=== PATIENT | female | born 1940 | race Caucasian/White ===

== ENCOUNTER → 2023-07-14 09:45 | Outpatient (REF) | payer MEDICARE, OTHER, SELFPAY ==
[2023-07-14 11:52] LABS: % Basophils 0.9 % (0-2); % Eosinophils 3.8 % (0-6); % Immature Granulocytes 0.3 % (0-0.5); % Lymphocytes 24.7 % (20.5-51.1); % Monocytes 11.1 % (1.7-9.3); % Neutrophils 59.2 % (42.2-75.2); Absolute Basophils 0.1 10^3/uL (0-0.2); Absolute Eosinophils 0.3 10^3/uL (0-0.7); Absolute Lymphocytes 1.8 10^3/uL (1.2-3.4); Absolute Monocytes 0.8 10^3/uL (0.1-0.6); Absolute Neutrophils 4.4 10^3/uL (1.4-6.5); Hematocrit 42.3 % (37.0-47.0); Hemoglobin 13.6 g/dL (12.0-16.0); Mean Corp Hgb Conc. 32.2 g/dL (33.0-37.0); Mean Corpuscular Hgb 31.3 pg (27.0-31.0); Mean Corpuscular Volume 97.5 fL (81.0-99.0); Mean Platelet Volume 11.8 fL (7.4-10.4); Nucleated Red Blood Cells % 0 %; Platelet Count 200 10^3/uL (130-400); Red Blood Cell Count 4.34 10^6/uL (4.20-5.40); Red Cell Dist. Width 13.2 % (11.5-14.5); White Blood Cell Count 7.5 10^3/uL (4.8-10.8)
[2023-07-14 14:24] LABS: ALT (SGPT) 15 U/L (0-35); AST (SGOT) 28 U/L (14-36); Albumin 4.2 g/dl (3.5-5.0); Alkaline Phosphatase 121 U/L (38-126); Blood Urea Nitrogen 43 mg/dl (7-17); Direct Bilirubin 0.4 mg/dl (0.0-0.4); Glucose 74 mg/dl (70-99); HDL Cholesterol 68 mg/dl; Iron 91 ug/dl (37-170); LDL Cholesterol, Calculated 139 mg/dl; Total Bilirubin 0.6 mg/dl (0.2-1.3); Total Cholesterol 232 mg/dl (50-199); Total Protein 6.4 g/dl (6.3-8.2); Triglyceride 128 mg/dl (10-149); Very Low Density Lipoprotein 25 mg/dl (0-30)
[2023-07-14 14:35] LABS: Glycohemoglobin (HgbA1c) 5.8 % (4.0-5.6)
[2023-07-14 14:46] LABS: Ferritin 83.5 ng/ml (11.1-264.0)
[2023-07-14 17:02] LABS: IgG 508 mg/dl (700-1600)
== END ==
LOC: REG 09:45
PROVIDERS: ATTENDING PHYSICIAN Internal Medicine Hematology & Oncology; FAMILY PHYSICIAN Internal Medicine
DX: D86.85 Sarcoid myocarditis (principal); D80.3 Selective deficiency of immunoglobulin G [IgG] subclasses; D50.9 Iron deficiency anemia, unspecified; E11.49 Type 2 diabetes mellitus with other diabetic neurological complication; N18.30 Chronic kidney disease, stage 3 unspecified; E78.5 Hyperlipidemia, unspecified; E03.9 Hypothyroidism, unspecified
CPT/HCPCS: 36415; 80061; 80076; 82565; 82728; 82784; 82947; 83036; 83540; 84520; 85025

== ENCOUNTER → 2023-09-09 10:36 | Outpatient (REF) | payer MEDICARE, OTHER, SELFPAY | LOC: RAD 10:36 | PROVIDERS: ATTENDING PHYSICIAN Internal Medicine | DX: M77.50 Other enthesopathy of unspecified foot and ankle (principal) | CPT/HCPCS: 73630 ==

== ENCOUNTER → 2023-09-26 17:21 | Outpatient (REF) | payer MEDICARE, OTHER, SELFPAY | LOC: RAD 17:21 | PROVIDERS: ATTENDING PHYSICIAN Internal Medicine | DX: R60.0 Localized edema (principal); M25.572 Pain in left ankle and joints of left foot | CPT/HCPCS: 73610; 93971 ==

== ENCOUNTER → 2023-10-16 10:29 | Outpatient (REF) | payer MEDICARE, OTHER, SELFPAY ==
[2023-10-16 11:15] LABS: % Basophils 0.8 % (0-2); % Eosinophils 2.2 % (0-6); % Immature Granulocytes 0.4 % (0-0.5); % Monocytes 12.9 % (1.7-9.3); % Neutrophils 64.7 % (42.2-75.2); Absolute Basophils 0.1 10^3/uL (0-0.2); Absolute Eosinophils 0.2 10^3/uL (0-0.7); Absolute Lymphocytes 1.5 10^3/uL (1.2-3.4); Hematocrit 40.3 % (37.0-47.0); Hemoglobin 13.4 g/dL (12.0-16.0); Mean Corp Hgb Conc. 33.3 g/dL (33.0-37.0); Mean Corpuscular Hgb 31.2 pg (27.0-31.0); Mean Corpuscular Volume 93.9 fL (81.0-99.0); Mean Platelet Volume 12.4 fL (7.4-10.4); Nucleated Red Blood Cells % 0 %; Platelet Count 157 10^3/uL (130-400); Red Blood Cell Count 4.29 10^6/uL (4.20-5.40); Red Cell Dist. Width 13.4 % (11.5-14.5); White Blood Cell Count 7.7 10^3/uL (4.8-10.8)
[2023-10-16 12:16] LABS: Iron 76 ug/dl (37-170)
[2023-10-16 12:28] LABS: IgG 440 mg/dl (700-1600)
[2023-10-16 12:45] LABS: Ferritin 37.6 ng/ml (11.1-264.0)
== END ==
LOC: REG 10:29
PROVIDERS: ATTENDING PHYSICIAN Internal Medicine Hematology & Oncology; FAMILY PHYSICIAN Internal Medicine
DX: D86.85 Sarcoid myocarditis (principal); D80.3 Selective deficiency of immunoglobulin G [IgG] subclasses; D50.9 Iron deficiency anemia, unspecified; D86.9 Sarcoidosis, unspecified
CPT/HCPCS: 36415; 82728; 82784; 83540; 85025

== ENCOUNTER → 2024-01-07 10:09 | Outpatient (REF) | payer MEDICARE, OTHER, SELFPAY ==
[2024-01-07 11:20] LABS: % Basophils 0.8 % (0-2); % Immature Granulocytes 0.5 % (0-0.5); % Lymphocytes 19.5 % (20.5-51.1); % Monocytes 12.5 % (1.7-9.3); % Neutrophils 63.7 % (42.2-75.2); Absolute Basophils 0.1 10^3/uL (0-0.2); Absolute Eosinophils 0.3 10^3/uL (0-0.7); Absolute Lymphocytes 1.7 10^3/uL (1.2-3.4); Absolute Monocytes 1.1 10^3/uL (0.1-0.6); Absolute Neutrophils 5.4 10^3/uL (1.4-6.5); Hematocrit 41.9 % (37.0-47.0); Hemoglobin 13.9 g/dL (12.0-16.0); Mean Corp Hgb Conc. 33.2 g/dL (33.0-37.0); Mean Corpuscular Hgb 30.1 pg (27.0-31.0); Mean Corpuscular Volume 90.7 fL (81.0-99.0); Mean Platelet Volume 11.8 fL (7.4-10.4); Nucleated Red Blood Cells % 0 %; Platelet Count 204 10^3/uL (130-400); Red Blood Cell Count 4.62 10^6/uL (4.20-5.40); Red Cell Dist. Width 14.9 % (11.5-14.5); White Blood Cell Count 8.5 10^3/uL (4.8-10.8)
[2024-01-07 11:59] LABS: ALT (SGPT) 17 U/L (0-35); AST (SGOT) 27 U/L (14-36); Albumin 4.2 g/dl (3.5-5.0); Alkaline Phosphatase 122 U/L (38-126); Blood Urea Nitrogen 40 mg/dl (7-17); Calcium 9.1 mg/dl (8.4-10.2); Carbon Dioxide 22 mmol/L (22-30); Chloride 106 mmol/L (98-107); Glucose 100 mg/dl (70-99); HDL Cholesterol 69 mg/dl; Iron 87 ug/dl (37-170); LDL Cholesterol, Calculated 126 mg/dl; Potassium 5.3 mmol/L (3.5-5.1); Sodium 140 mmol/L (135-145); Total Bilirubin 0.7 mg/dl (0.2-1.3); Total Cholesterol 231 mg/dl (50-199); Total Protein 6.2 g/dl (6.3-8.2); Triglyceride 184 mg/dl (10-149); Very Low Density Lipoprotein 36 mg/dl (0-30)
[2024-01-07 12:15] LABS: Glycohemoglobin (HgbA1c) 5.8 % (4.0-5.6)
[2024-01-08 04:43] LABS: IgG 434 mg/dl (700-1600)
== END ==
LOC: REG 10:09
PROVIDERS: ATTENDING PHYSICIAN Internal Medicine Hematology & Oncology; FAMILY PHYSICIAN Internal Medicine
DX: D86.85 Sarcoid myocarditis (principal); D80.3 Selective deficiency of immunoglobulin G [IgG] subclasses; D50.9 Iron deficiency anemia, unspecified; R53.83 Other fatigue; Z00.00 Encounter for general adult medical examination without abnormal findings; I10 Essential (primary) hypertension; E78.5 Hyperlipidemia, unspecified; E66.3 Overweight; E11.49 Type 2 diabetes mellitus with other diabetic neurological complication
CPT/HCPCS: 36415; 80053; 80061; 82728; 82784; 83036; 83540; 85025

== ENCOUNTER → 2024-02-10 11:00 | Outpatient (REF) | payer MEDICARE, OTHER, SELFPAY ==
[2024-02-10 09:01] LABS: % Basophils 1.2 % (0-2); % Eosinophils 3.7 % (0-6); % Immature Granulocytes 0.7 % (0-0.5); % Lymphocytes 20.9 % (20.5-51.1); % Monocytes 10.1 % (1.7-9.3); % Neutrophils 63.4 % (42.2-75.2); Absolute Basophils 0.1 10^3/uL (0-0.2); Absolute Eosinophils 0.2 10^3/uL (0-0.7); Absolute Lymphocytes 1.2 10^3/uL (1.2-3.4); Absolute Monocytes 0.6 10^3/uL (0.1-0.6); Absolute Neutrophils 3.8 10^3/uL (1.4-6.5); Hematocrit 44.2 % (37.0-47.0); Hemoglobin 13.9 g/dL (12.0-16.0); Mean Corp Hgb Conc. 31.4 g/dL (33.0-37.0); Mean Corpuscular Hgb 31.2 pg (27.0-31.0); Mean Corpuscular Volume 99.1 fL (81.0-99.0); Mean Platelet Volume 11.7 fL (7.4-10.4); Nucleated Red Blood Cells % 0 %; Platelet Count 211 10^3/uL (130-400); Red Blood Cell Count 4.46 10^6/uL (4.20-5.40); Red Cell Dist. Width 14.5 % (11.5-14.5); White Blood Cell Count 5.9 10^3/uL (4.8-10.8)
== END ==
LOC: OIDL 11:00
PROVIDERS: ATTENDING PHYSICIAN Internal Medicine Hematology & Oncology
DX: D86.85 Sarcoid myocarditis (principal); D80.3 Selective deficiency of immunoglobulin G [IgG] subclasses; D50.9 Iron deficiency anemia, unspecified; R53.83 Other fatigue
CPT/HCPCS: 85025

== ENCOUNTER → 2024-02-24 07:31 | Outpatient (REF) | payer MEDICARE, OTHER, SELFPAY | LOC: RCS 07:31 | PROVIDERS: ATTENDING PHYSICIAN Internal Medicine Cardiovascular Disease; FAMILY PHYSICIAN Internal Medicine | DX: I34.0 Nonrheumatic mitral (valve) insufficiency (principal) | CPT/HCPCS: 93306 ==